=== PATIENT | female | born 1995 | race Two or more races ===

== ENCOUNTER 2022-11-14 19:37 | Emergency (ER) | payer OTHER ==
[~2022-11-14] VITALS: Ht 160 cm; Wt 148.3 kg
[2022-11-14 20:59] LABS: Urine Bacteria NONE SEEN /hpf (None Seen); Urine Blood Negative /uL (Negative); Urine Clarity HAZY (Clear); Urine Color Yellow (Yellow); Urine Protein, UAD Negative (Negative); Urine Specific Gravity 1.021 (1.001-1.035); Urine Urobilinogen Normal (Negative); Urine WBC 4 /hpf (0 - 5); Urine pH 6.5 (5.0-8.0)
[2022-11-15] MEDS ORDERED: ACETAMINOPHEN 325 MG TAB PO ONE
[2022-11-15 01:00] VITALS: PULSE 80; RESP 21; TEMP 97.9; O2SAT 98
[2022-11-15 03:12] LABS: Basophils # (auto) 0.1 10 ^3/uL (0-0.2); Basophils % (auto) 0.6 % (0.0-2.0); Eosinophils # (auto) 0.7 10 ^3/uL (0-0.8); Hematocrit 39.4 % (36.0-46.0); Hemoglobin 13.2 g/dL (12.2-16.2); Lymphocytes % (auto) 32.1 % (10.0-50.0); Mean Corpuscular Hemoglobin 28.5 pg (28.0-32.0); Mean Corpuscular Hgb Conc. 33.4 g/dL (32.0-36.0); Mean Corpuscular Volume 85.2 fL (80.0-100.0); Monocytes # (auto) 0.8 10 ^3/uL (0-1.3); Monocytes % (auto) 8.1 % (0.0-12.0); Neutrophils # (auto) 4.9 10 ^3/uL (1.6-8.6); Neutrophils % (auto) 52.2 % (37.0-80.0); Nucleated Red Blood Cells % 0.1 %; Red Blood Cells 4.63 10^6/uL (4.0-5.20); Red Cell Distribution Width 14.7 % (11.8-14.3); White Blood Cell 9.4 10^3/uL (4.4-10.8)
[2022-11-15 03:31] LABS: Alanine Aminotransferase 48 U/L (7-40); Albumin 4.1 g/dL (3.2-4.8); Alkaline Phosphatase 85 U/L (46-116); Anion Gap 6.6 (5-15); Aspartate Aminotransferase 21 U/L (13-40); BUN/Creatinine Ratio 12.5 (10.0-20.0); Bilirubin, Total 0.3 mg/dL (0.2-1.0); Blood Urea Nitrogen 8 mg/dL (9-23); Calcium 9.2 mg/dL (8.7-10.4); Carbon Dioxide 24.4 mmol/L (20-30); Chloride 106 mmol/L (98-107); Glucose 110 mg/dL (74-106); Lipase 34 U/L (12-53); Potassium 3.9 mmol/L (3.5-5.1); Sodium 137 mmol/L (136-145); Total Protein 7.2 g/dL (5.7-8.2)
[2022-11-15 04:16] VITALS: BP 118/76; PULSE 78; RESP 17; O2SAT 96
== END 2022-11-15 06:24 | disposition home or self-care (01) ==
LOC: ER 19:37
DX: S80.02XA Contusion of left knee, initial encounter (principal); S19.9XXA Unspecified injury of neck, initial encounter; S30.1XXA Contusion of abdominal wall, initial encounter; R10.9 Unspecified abdominal pain; Z88.8 Allergy status to other drugs, medicaments and biological substances; V89.2XXA Person injured in unspecified motor-vehicle accident, traffic, initial encounter; Y93.89 Activity, other specified; Y92.89 Other specified places as the place of occurrence of the external cause; Y99.8 Other external cause status
CPT/HCPCS: 36415; 70450; 71260; 72125; 73560; 74177; 80053; 81001; 81025; 82550; 83690; 84484; 85025